=== PATIENT | female | born 1950 | race Caucasian/White ===

== ENCOUNTER 2019-02-26 23:54 | Inpatient (IN) ==
[2019-02-27 00:50] LABS: Alanine Aminotransferase 17 U/L (13-56); Albumin 3.5 G/DL (3.4-5.0); Alkaline Phosphatase 95 U/L (45-117); Aspartate Amino Transferase 12 U/L (0-37); Bilirubin,Total < 0.39 MG/DL (0.2-1.0); Blood Urea Nitrogen 28 MG/DL (7-18); Calcium 8.2 MG/DL (8.5-10.1); Glucose 210 MG/DL (74-106); Osmolality,Calculated 292.3 MOS/KG (273-304); Total Protein 6.2 G/DL (6.4-8.3)
[2019-02-27 01:15] LABS: INR 0.9; Partial Thromboplastin Time 23.3 SECS (0-40)
[2019-02-27 01:20] LABS: Basophils % 0.6 % (0.0-0.8); Eosinophils # 0.1 10*3/uL (0.0-0.87); Hematocrit 27.4 VOL% (35.7-47.0); Hemoglobin 7.5 GM/DL (12.0-16.0); Immature Granulocytes % 0.6 %; Immature Granulocytes Absolute 0.04 #; Lymphocytes # 2.6 10*3/uL (1.4-4.0); Lymphocytes % 38.3 % (21.3-54.2); Mean Corpuscular HGB Conc 27.4 GM/DL (32-36); Mean Corpuscular Volume 72.3 FL (87-102); Mean Platelet Volume 9.7 FL (9.6-12.0); Monocytes % 6.8 % (1.7-12.7); Neutrophils % 52.7 % (38.7-73.9); Platelet Count 335 T/CUMM (130-400); Red Blood Count 3.79 MC/CUMM (3.8-5.5); White Blood Count 6.7 T/CUMM (4-12)
[2019-02-27] MEDS ORDERED: NITROGLYCERIN 2% OINT 1 INCH/GM PACK TOP STA (01:33)
[2019-02-27] MEDS ORDERED: ASPIRIN 325 MG TABLET PO STA (01:33)
[2019-02-27 03:00] LABS: % Iron Saturation 5.2 % (18-50); Ferritin 3.2 ng/ml (8-252)
[2019-02-27 03:04] LABS: Anisocytosis 1+; Hypochromasia 1+; Ovalocytes Few; Platelet Estimate Adequate
[2019-02-27] MEDS ORDERED: diphenhydrAMINE CAP 25 MG CAPSULE ONE (03:09)
[2019-02-27 03:13] LABS: Folate 7.6 NG/ML (5.4-24.0); Vitamin B12 257 PG/ML (211-911)
[2019-02-27] MEDS ORDERED: SODIUM CHLORIDE 0.9% 1,000 ML IV PRN (03:34)
[2019-02-27] MEDS ORDERED: ONDANSETRON 4 MG/2 ML VIAL IV PRN (03:34)
[2019-02-27] MEDS ORDERED: ACETAMINOPHEN 325 MG TABLET PO PRN (03:34)
[2019-02-27 03:48] LABS: Basophils % 0.6 % (0.0-0.8); Eosinophils % 0.6 % (0.00-10.9); Hematocrit 29.2 VOL% (35.7-47.0); Hemoglobin 7.9 GM/DL (12.0-16.0); Immature Granulocytes % 0.6 %; Immature Granulocytes Absolute 0.04 #; Lymphocytes # 2.4 10*3/uL (1.4-4.0); Lymphocytes % 33.4 % (21.3-54.2); Mean Corpuscular HGB Conc 27.1 GM/DL (32-36); Mean Corpuscular Volume 71.9 FL (87-102); Mean Platelet Volume 9.8 FL (9.6-12.0); Monocytes % 6.8 % (1.7-12.7); Platelet Count 344 T/CUMM (130-400); Red Blood Count 4.06 MC/CUMM (3.8-5.5)
[2019-02-27 04:08] LABS: Anisocytosis 1+; Hypochromasia 1+; Microcytosis Slight; Ovalocytes Slight; Platelet Estimate Adequate; Polychromasia Slight
[2019-02-27 04:26] LABS: Apearance,Urine CLEAR (Clear); Bacteria,Urine Occasional /HPF (Few); Bilirubin,Urine Negative (Negative); Blood, Urine Negative (Negative); Glucose,Urine (UA) 50 mg/dL (Negative); Ketones,Urine Negative (Negative); Mucus,Urine Occasional /LPF (Occasional); Nitrite,Urine Negative (Negative); Protein,Urine Negative; RBC,Urine 1 /HPF (0-4); Squamous Epithelial Cell,Urine Occasional /HPF (0-10); Urine Color Straw (Yellow); Urine Specific Gravity 1.013 (1.001-1.035); Urine Urobilinogen < 2.0 EU/DL (0.2-1.0); WBC,Urine 9 /HPF (0-6)
[2019-02-27 06:04] LABS: Sedimentation Rate-Westergren 24 MM/HR (0-30)
[2019-02-27 06:45] LABS: Hematocrit 26.9 VOL% (35.7-47.0)
[2019-02-27 06:46] LABS: Hemoglobin 7.4 GM/DL (12.0-16.0)
[2019-02-27 08:58] LABS: Hemoglobin A1 (Alkaline) 97.8 % (96.5-98.5); Hemoglobin A2 (Alkaline) 2.2 % (1.5-3.5)
[2019-02-27] MEDS ORDERED: PANTOPRAZOLE 40 MG VIAL IV SCH (09:00)
[2019-02-27] MEDS: PANTOPRAZOLE 40 MG VIAL IV SCH ×2 (09:43→21:44)
[2019-02-27] MEDS ORDERED: DEXTROSE 50% 25 GM/50 ML VIAL IV PRN (09:54)
[2019-02-27] MEDS ORDERED: GLUCAGON 1 MG VIAL IM PRN (09:54)
[2019-02-27] MEDS ORDERED: DEXTROSE 10% 250 ML IV PRN (10:03)
[2019-02-27] MEDS: LOSARTAN 25 MG TABLET PO SCH ×2 (14:14→21:44)
[2019-02-27 18:30] LABS: Hematocrit 33.4 VOL% (35.7-47.0)
[2019-02-27 18:34] LABS: Hemoglobin 9.9 GM/DL (12.0-16.0)
[2019-02-27] MEDS: CITALOPRAM 40 MG TABLET PO SCH (21:43)
[2019-02-27] MEDS: NIACIN ER 500 MG TABLET PO SCH (21:43)
[2019-02-27] MEDS: SIMVASTATIN 10 MG TABLET PO SCH (21:44)
[2019-02-27] MEDS: traZODone 50 MG TABLET PO PRN (21:44)
[2019-02-27] MEDS: INSULIN REGULAR 100 UNIT/ML SUBCUT SCH (21:45)
[2019-02-27 22:18] LABS: Hematocrit 35.6 VOL% (35.7-47.0)
[2019-02-27 22:29] LABS: Hemoglobin 10.4 GM/DL (12.0-16.0)
[2019-02-28 05:28] LABS: Eosinophils # 0.1 10*3/uL (0.0-0.87); Eosinophils % 1.4 % (0.00-10.9); Mean Corpuscular Volume 74.2 FL (87-102)
[2019-02-28 05:34] LABS: Risk Ratio 3.09; VLDL CHOLESTEROL 17.6 MG/DL
[2019-02-28 05:41] LABS: Calcium 8.7 MG/DL (8.5-10.1); Osmolality,Calculated 287.7 MOS/KG (273-304); Thyroid Stimulating Hormone 0.9 uIU/ml (0.358-3.74)
[2019-02-28 05:56] LABS: Basophils % 0.6 % (0.0-0.8); Hematocrit 33.6 VOL% (35.7-47.0); Immature Granulocytes % 0.7 %; Immature Granulocytes Absolute 0.05 #; Lymphocytes # 2.8 10*3/uL (1.4-4.0); Lymphocytes % 38.4 % (21.3-54.2); Mean Corpuscular HGB Conc 29.8 GM/DL (32-36); Mean Platelet Volume 10.1 FL (9.6-12.0); Neutrophils % 49.9 % (38.7-73.9); Platelet Count 315 T/CUMM (130-400); Red Blood Count 4.53 MC/CUMM (3.8-5.5); Red Cell Distribution Width 17.3 % (9.3-17.3); White Blood Count 7.2 T/CUMM (4-12)
[2019-02-28] MEDS: cefTRIAXone 1,000 MG in SYRINGE 1 EACH IV SCH (09:28)
[2019-02-28] MEDS: INSULIN REGULAR 100 UNIT/ML SUBCUT SCH ×4 (09:29→21:30)
[2019-02-28] MEDS: PANTOPRAZOLE 40 MG VIAL IV SCH ×2 (09:29→20:20)
[2019-02-28] MEDS: LOSARTAN 25 MG TABLET PO SCH ×2 (09:30→20:19)
[2019-02-28] MEDS: DOCUSATE SODIUM 100 MG CAPSULE PO SCH ×2 (09:30→20:19)
[2019-02-28] MEDS: FERROUS SULFATE 325 MG TABLET PO SCH ×2 (09:30→20:20)
[2019-02-28] MEDS: CITALOPRAM 40 MG TABLET PO SCH (20:19)
[2019-02-28] MEDS: SIMVASTATIN 10 MG TABLET PO SCH (20:20)
[2019-02-28] MEDS: NIACIN ER 500 MG TABLET PO SCH (20:20)
[2019-02-28] MEDS: traZODone 50 MG TABLET PO PRN (21:30)
[2019-02-28] MEDS: INSULIN GLARGINE 100 UNIT/ML SUBCUT SCH (21:31)
[2019-03-01 05:42] LABS: Calcium 8.6 MG/DL (8.5-10.1); Osmolality,Calculated 287.8 MOS/KG (273-304)
[2019-03-01 05:47] LABS: Basophils % 0.6 % (0.0-0.8); Eosinophils # 0.1 10*3/uL (0.0-0.87); Eosinophils % 1.3 % (0.00-10.9); Hematocrit 34.4 VOL% (35.7-47.0); Immature Granulocytes % 0.6 %; Immature Granulocytes Absolute 0.04 #; Lymphocytes # 2.7 10*3/uL (1.4-4.0); Lymphocytes % 39.4 % (21.3-54.2); Mean Corpuscular HGB Conc 29.1 GM/DL (32-36); Mean Corpuscular Volume 74.9 FL (87-102); Mean Platelet Volume 10.1 FL (9.6-12.0); Monocytes % 7.5 % (1.7-12.7); Neutrophils % 50.6 % (38.7-73.9); Platelet Count 308 T/CUMM (130-400); Red Blood Count 4.59 MC/CUMM (3.8-5.5); Red Cell Distribution Width 17.9 % (9.3-17.3)
[2019-03-01 06:25] LABS: Anisocytosis 1+; Ovalocytes Few; Platelet Estimate Adequate
[2019-03-01] MEDS: INSULIN REGULAR 100 UNIT/ML SUBCUT SCH ×4 (09:18→21:02)
[2019-03-01] MEDS: FERROUS SULFATE 325 MG TABLET PO SCH ×2 (10:19→20:36)
[2019-03-01] MEDS: cefTRIAXone 1,000 MG in SYRINGE 1 EACH IV SCH (10:19)
[2019-03-01] MEDS: LOSARTAN 25 MG TABLET PO SCH ×2 (10:19→20:36)
[2019-03-01] MEDS: PANTOPRAZOLE 40 MG VIAL IV SCH ×2 (10:19→20:37)
[2019-03-01] MEDS: DOCUSATE SODIUM 100 MG CAPSULE PO SCH ×2 (10:19→20:36)
[2019-03-01] MEDS: CITALOPRAM 40 MG TABLET PO SCH (20:36)
[2019-03-01] MEDS: SIMVASTATIN 10 MG TABLET PO SCH (20:36)
[2019-03-01] MEDS: NIACIN ER 500 MG TABLET PO SCH (20:36)
[2019-03-01] MEDS: INSULIN GLARGINE 100 UNIT/ML SUBCUT SCH (20:37)
[2019-03-02] MEDS ORDERED: PROPOFOL 200 MG/20 ML VIAL IV ONE (09:00)
[2019-03-02] MEDS ORDERED: LIDOCAINE 2% 5 ML VIAL ONE (09:00)
[2019-03-02] MEDS: PANTOPRAZOLE 40 MG VIAL IV SCH ×2 (10:34→21:33)
[2019-03-02] MEDS: cefTRIAXone 1,000 MG in SYRINGE 1 EACH IV SCH (10:36)
[2019-03-02] MEDS: INSULIN REGULAR 100 UNIT/ML SUBCUT SCH ×4 (10:38→21:33)
[2019-03-02] MEDS: LOSARTAN 25 MG TABLET PO SCH ×2 (17:15→21:32)
[2019-03-02] MEDS: FERROUS SULFATE 325 MG TABLET PO SCH ×2 (17:15→21:32)
[2019-03-02] MEDS: DOCUSATE SODIUM 100 MG CAPSULE PO SCH ×2 (17:15→21:30)
[2019-03-02] MEDS ORDERED: BISACODYL 5 MG TABLET PO ONE (17:45)
[2019-03-02] MEDS ORDERED: POLYETHYLENE GLYCOL POWDER 255 GM BOTTLE PO ONE (18:00)
[2019-03-02] MEDS: CITALOPRAM 40 MG TABLET PO SCH (21:31)
[2019-03-02] MEDS: SIMVASTATIN 10 MG TABLET PO SCH (21:32)
[2019-03-02] MEDS: INSULIN GLARGINE 100 UNIT/ML SUBCUT SCH (21:33)
[2019-03-02] MEDS: NIACIN ER 500 MG TABLET PO SCH (21:36)
[2019-03-03] MEDS ORDERED: MAGNESIUM CITRATE 300 ML BOTTLE PO ONE (06:00)
[2019-03-03] MEDS: DOCUSATE SODIUM 100 MG CAPSULE PO SCH (08:44)
[2019-03-03] MEDS: INSULIN REGULAR 100 UNIT/ML SUBCUT SCH ×3 (08:44→16:09)
[2019-03-03] MEDS: LOSARTAN 25 MG TABLET PO SCH (08:44)
[2019-03-03] MEDS: FERROUS SULFATE 325 MG TABLET PO SCH (08:44)
[2019-03-03] MEDS: PANTOPRAZOLE 40 MG VIAL IV SCH (09:10)
[2019-03-03] MEDS: cefTRIAXone 1,000 MG in SYRINGE 1 EACH IV SCH (09:10)
[2019-03-03] MEDS ORDERED: PROPOFOL 200 MG/20 ML VIAL IV ONE (13:44)
[2019-03-03] MEDS ORDERED: LIDOCAINE 2% 5 ML VIAL ONE (13:44)
[2019-03-03] MEDS ORDERED: ETOMIDATE 20 MG/10 ML VIAL IV ONE (13:44)
[2019-03-03 16:51] VITALS: BP 135/72
== END 2019-03-03 17:15 | disposition home or self-care (01) | DRG 811 ==
LOC: N.ED 23:54 → N.EDINP 02-27 03:11 → SUATTDRO 02-27 03:11 → N.4E 02-27 04:16
PROVIDERS: ADMIT Internal Medicine; ATTEND Internal Medicine